=== PATIENT | male | born 1995 | race Caucasian/White ===

== ENCOUNTER 2018-04-04 09:32 | Inpatient (IN) ==
--- NOTE | 2018-04-04 10:00 | Emergency Department Note ---
General Adult HPI - General Chief complaint: Urogenital-Male Stated complaint: hematuria, weakness Time Seen by Provider: 04/04/18 09:46 Source: patient, family Mode of arrival: ambulatory Limitations: no limitations - History of Present Illness HPI Narrative: 22-year-old male in ED today with his grandmother present. Patient states 2 days ago he ate old taco time and felt as though he had food poisoning. 30 minutes after ingestion he began vomiting. Patient states since that time he's had nausea 2 episodes of vomiting yesterday, body aches, cramps, fatigue. Patient states he does have good intake with water. Patient states he has been able to keep his breakfast down this morning which was toast and eggs. Patient also states he is feeling better than he was 2 days ago and yesterday. Patient states he does not use alcohol. Patient smokes marijuana daily. Patient states he uses meth/heroin and shows the track andino. Patient states last use was 4-5 days ago. Patient does not believe he is in withdrawals because he "does not use it that often." patient states he does not have any sexual partners. He is working on getting his whoplusyou so he can go to college. Patient states he does not have any past medical history nor does he take any medications on a regular basis. Patient does request Benadryl for his nausea. Onset (ago): day(s) (2) Location: abdomen Radiation: non-radiation Severity: moderate Severity scale (1-10): 6 Quality: aching Consistency: intermittent Improves with: immobilization Worsens with: movement Associated symptoms: Reports: confusion, loss of appetite, malaise, nausea/ vomiting Treatments Prior to Arrival: none - Related Data Home Medications Medication Instructions Recorded Confirmed No Known Home Meds 04/04/18 04/04/18 Allergies Allergy/AdvReac Type Severity Reaction Status Date / Time No Known Drug Allergies Allergy Verified 04/04/18 09:33 Review of Systems Constitutional: Reports: weakness. Denies: fever, chills Eyes: Denies: eye pain ENT ED: Denies: ear pain, throat pain, congestion Cardiovascular: Denies: chest pain, palpitations Respiratory: Denies: shortness of breath, cough, wheezes Gastrointestinal: Reports: abdominal pain, nausea, vomiting. Denies: diarrhea, constipation Genitourinary: Denies: dysuria, frequency, urgency Musculoskeletal: Reports: joint pain. Denies: back pain Integumentary: Denies: rash Neurological: Reports: headache Endocrine: Reports: fatigue. Denies: heat or cold intolerance Hematological/Lymphatic: Denies: easy bleeding, easy bruising, lymphadenopathy Allergic/Immunologic: Denies: facial swelling, urticaria Past Medical History - Past Medical History Medical history: Reports: no medical history, other (Poor dental health) Surgical history ED: Reports: no surgical history - Social History smoking status: Current every day smoker Alcohol use: Reports: None Drug use: Reports: opiates, marijuana, methamphetamine Physical Exam Limitations: no limitations General appearance: alert, in no apparent distress, malaise Head: atraumatic, normocephalic, normal inspection Eye: Present: normal appearance, PERRL. Absent: conjunctival injection ENT: normal exam, normal oropharynx, mucous membranes moist, TM's normal bilaterally, normal external ear exam Neck: Present: normal inspection. Absent: tenderness, lymphadenopathy Chest: Present: normal inspection, symmetric chest wall rise. Absent: tenderness Respiratory: Present: normal lung sounds bilaterally, respiratory distress. Absent: wheezes Cardiovascular: Present: normal rhythm, tachycardia, systolic murmur, diastolic murmur Abdominal: Present: soft, tenderness, normal bowel sounds. Absent: distention, guarding, rebound, rigidity, organomegaly Abdominal tenderness: Present: diffuse, moderate Extremities: Present: normal inspection, other (patient does have track andino both right and left AC). Absent: tenderness, normal capillary refill Back: Present: normal inspection. Absent: CVA tenderness (R), CVA tenderness (L ) Neurological: Present: alert, oriented X3, normal gait Psychiatric: Present: normal affect, normal mood, depressed Skin: Present: warm, dry, intact, normal color. Absent: cyanosis, diaphoresis, erythema Course Vital Signs Temperature 97.5 F 04/04/18 09:33 Pulse Rate 111 H 04/04/18 09:33 Respiratory Rate 14 04/04/18 09:33 Blood Pressure 90/51 04/04/18 09:33 Pulse Oximetry (%) 100 04/04/18 09:33 Temperature 98.4 F 04/04/18 16:10 Pulse Rate 92 H 04/04/18 17:01 Respiratory Rate 29 H 04/04/18 19:01 Blood Pressure 95/39 04/04/18 19:01 Pulse Oximetry (%) 100 04/04/18 19:01 Medical Decision Making - MDM Narrative Medical decision making narrative: Consulted Dr. bland on patient diagnostics and history, agreed on sepsis and further treatment needed. Consulted with hospitalist Dr. Clark for admission and he accepted and added Zosyn, ProCal, and urine drug screen to the regimen. - Lab Data Lab results reviewed: Yes I reviewed the patient's lab results. Result diagrams: 04/04/18 10:17 04/04/18 10:17 Lab Results 04/04/18 04/04/18 04/04/18 Range/Units 09:40 09:40 10:11 WBC (4.5-11.0) K/mcL RBC (4.50-5.90) M/mcL Hgb (13.5-16.5) g/dL Hct (41.0-55.0) % MCV (80.0-100.0) fL MCH (26.0-34.0) pg MCHC (31.0-36.0) g/dL RDW (11.5-14.5) % Plt Count (140-440) K/mcL MPV (7.4-10.4) fL Gran % (38.0-78.0) % Lymph % (Auto) (15.5-49.0) % [place] % (Auto) (1.0-12.0) % Eos % (Auto) (0.0-7.0) % Baso % (Auto) (0.0-2.0) % Gran # (1.8-8.0) K/mcL Lymph # (Auto) (1.5-4.8) K/mcL [place] # (Auto) (0.1-0.9) K/mcL Eos # (Auto) (0.0-0.7) K/mcL Baso # (Auto) (0.0-0.3) K/mcL Differential Comment ESR (0-15) mm/hr VBG Lactic Acid (0.5-2.2) mmol/L Sodium (133-145) mmol/L Potassium (3.3-5.1) mmol/L Chloride (96-108) mmol/L Carbon Dioxide (22-30) mmol/L Anion Gap (8-16) BUN (6-20) mg/dl Creatinine (0.7-1.2) mg/dl GFR Calculation Glucose (70-105) mg/dL Calcium (8.6-10.4) mg/dl Total Bilirubin 2.4 H (0.0-1.0) mg/dL Direct Bilirubin 1.3 H (0.0-0.3) mg/dL AST 97 H (0-37) U/l ALT 148 H (0-40) U/l Alkaline Phosphatase 107 (39-117) U/L Ammonia (16-60) umol/L Total Creatine Kinase 251 H (24-195) IU/L C-Reactive Protein 20.3 H (0.0-0.8) mg/dl Total Protein 6.8 (5.9-8.4) gm/dL Albumin 4.0 (3.2-5.2) gm/dL Globulin 2.8 (2.2-3.7) gm/dL Albumin/Globulin Ratio (1.0-2.3) Amylase (28-100) U/L Lipase (7-60) U/L Procalcitonin (<0.10) ng/mL Urine Color [place] Urine Appearance Clear Urine pH 6.0 (5.0-9.0) Ur Specific [place] 1.019 (1.000-1.035) Urine Protein 30 A (NEG) mg/dL Urine Glucose (UA) Negative (NEG) mg/dL Urine Ketones Neg (NEG) mg/dL Urine Occult Blood 0.03 A (<0.03) mg/dL Urine Nitrate Neg (NEG) Urine Bilirubin Neg (NEG) mg/dL Urine Urobilinogen 4.0 A (NEG) mg/dL Ur Leukocyte Esterase Neg (NEG) /uL Urine RBC 2 H (0-1) /hpf Urine WBC 17 H (0-4) /hpf Ur Squamous Epith Cells 1 (0-4) /hpf Ur Transition Epith Cell < 1 (0-2) /hpf Amorphous Crystals Few A (0) /hpf Urine Bacteria 0 (0) /hpf Ur Culture Indicated? Yes Urine Opiates Screen None detected (NONDETECTED) Ur Oxycodone Screen None detected (NONDETECTED) Urine Methadone Screen None detected (NONDETECTED) Ur Barbiturates Screen None detected (NONDETECTED) Ur Phencyclidine Scrn None detected (NONDETECTED) Ur Amphetamines Screen Suspect positive A (NONDETECTED) U Benzodiazepines Scrn None detected (NONDETECTED) Urine Cocaine Screen None detected (NONDETECTED) U Marijuana (THC) Screen Suspect positive A (NONDETECTED) 04/04/18 04/04/18 04/04/18 Range/Units 10:17 10:17 10:17 WBC 21.2 H (4.5-11.0) K/mcL RBC 4.84 (4.50-5.90) M/mcL Hgb 15.1 (13.5-16.5) g/dL Hct 45.5 (41.0-55.0) % MCV 94.0 (80.0-100.0) fL MCH 31.1 (26.0-34.0) pg MCHC 33.1 (31.0-36.0) g/dL RDW 13.6 (11.5-14.5) % Plt Count 74 L (140-440) K/mcL MPV 10.1 (7.4-10.4) fL Gran % 91.3 H (38.0-78.0) % Lymph % (Auto) 4.8 L (15.5-49.0) % [place] % (Auto) 3.8 (1.0-12.0) % Eos % (Auto) 0 (0.0-7.0) % Baso % (Auto) 0.1 (0.0-2.0) % Gran # 19.4 H (1.8-8.0) K/mcL Lymph # (Auto) 1.0 L (1.5-4.8) K/mcL [place] # (Auto) 0.8 (0.1-0.9) K/mcL Eos # (Auto) 0 (0.0-0.7) K/mcL Baso # (Auto) 0 (0.0-0.3) K/mcL Differential Comment ESR 9 (0-15) mm/hr VBG Lactic Acid (0.5-2.2) mmol/L Sodium 131 L (133-145) mmol/L Potassium 3.5 (3.3-5.1) mmol/L Chloride 93 L (96-108) mmol/L Carbon Dioxide 27 (22-30) mmol/L Anion Gap 11.0 (8-16) BUN 31 H (6-20) mg/dl Creatinine 1.3 H (0.7-1.2) mg/dl GFR Calculation 78 Glucose 105 (70-105) mg/dL Calcium 8.8 (8.6-10.4) mg/dl Total Bilirubin 2.3 H (0.0-1.0) mg/dL Direct Bilirubin (0.0-0.3) mg/dL AST 101 H (0-37) U/l ALT 147 H (0-40) U/l Alkaline Phosphatase 110 (39-117) U/L Ammonia (16-60) umol/L Total Creatine Kinase (24-195) IU/L C-Reactive Protein (0.0-0.8) mg/dl Total Protein 6.6 (5.9-8.4) gm/dL Albumin 3.9 (3.2-5.2) gm/dL Globulin 2.7 (2.2-3.7) gm/dL Albumin/Globulin Ratio 1.4 (1.0-2.3) Amylase 26 L (28-100) U/L Lipase 15 (7-60) U/L Procalcitonin (<0.10) ng/mL Urine Color Urine Appearance Urine pH (5.0-9.0) Ur Specific [place] (1.000-1.035) Urine Protein (NEG) mg/dL Urine Glucose (UA) (NEG) mg/dL Urine Ketones (NEG) mg/dL Urine Occult Blood (<0.03) mg/dL Urine Nitrate (NEG) Urine Bilirubin (NEG) mg/dL Urine Urobilinogen (NEG) mg/dL Ur Leukocyte Esterase (NEG) /uL Urine RBC (0-1) /hpf Urine WBC (0-4) /hpf Ur Squamous Epith Cells (0-4) /hpf Ur Transition Epith Cell (0-2) /hpf Amorphous Crystals (0) /hpf Urine Bacteria (0) /hpf Ur Culture Indicated? Urine Opiates Screen (NONDETECTED) Ur Oxycodone Screen (NONDETECTED) Urine Methadone Screen (NONDETECTED) Ur Barbiturates Screen (NONDETECTED) Ur Phencyclidine Scrn (NONDETECTED) Ur Amphetamines Screen (NONDETECTED) U Benzodiazepines Scrn (NONDETECTED) Urine Cocaine Screen (NONDETECTED) U Marijuana (THC) Screen (NONDETECTED) 04/04/18 04/04/18 04/04/18 Range/Units 12:53 14:32 14:32 WBC (4.5-11.0) K/mcL RBC (4.50-5.90) M/mcL Hgb (13.5-16.5) g/dL Hct (41.0-55.0) % MCV (80.0-100.0) fL MCH (26.0-34.0) pg MCHC (31.0-36.0) g/dL RDW (11.5-14.5) % Plt Count (140-440) K/mcL MPV (7.4-10.4) fL Gran % (38.0-78.0) % Lymph % (Auto) (15.5-49.0) % [place] % (Auto) (1.0-12.0) % Eos % (Auto) (0.0-7.0) % Baso % (Auto) (0.0-2.0) % Gran # (1.8-8.0) K/mcL Lymph # (Auto) (1.5-4.8) K/mcL [place] # (Auto) (0.1-0.9) K/mcL Eos # (Auto) (0.0-0.7) K/mcL Baso # (Auto) (0.0-0.3) K/mcL Differential Comment ESR (0-15) mm/hr VBG Lactic Acid 2.3 H (0.5-2.2) mmol/L Sodium (133-145) mmol/L Potassium (3.3-5.1) mmol/L Chloride (96-108) mmol/L Carbon Dioxide (22-30) mmol/L Anion Gap (8-16) BUN (6-20) mg/dl Creatinine (0.7-1.2) mg/dl GFR Calculation Glucose (70-105) mg/dL Calcium (8.6-10.4) mg/dl Total Bilirubin (0.0-1.0) mg/dL Direct Bilirubin (0.0-0.3) mg/dL AST (0-37) U/l ALT (0-40) U/l Alkaline Phosphatase (39-117) U/L Ammonia 19 (16-60) umol/L Total Creatine Kinase (24-195) IU/L C-Reactive Protein (0.0-0.8) mg/dl Total Protein (5.9-8.4) gm/dL Albumin (3.2-5.2) gm/dL Globulin (2.2-3.7) gm/dL Albumin/Globulin Ratio (1.0-2.3) Amylase (28-100) U/L Lipase (7-60) U/L Procalcitonin 56.69 (<0.10) ng/mL Urine Color Urine Appearance Urine pH (5.0-9.0) Ur Specific [place] (1.000-1.035) Urine Protein (NEG) mg/dL Urine Glucose (UA) (NEG) mg/dL Urine Ketones (NEG) mg/dL Urine Occult Blood (<0.03) mg/dL Urine Nitrate (NEG) Urine Bilirubin (NEG) mg/dL Urine Urobilinogen (NEG) mg/dL Ur Leukocyte Esterase (NEG) /uL Urine RBC (0-1) /hpf Urine WBC (0-4) /hpf Ur Squamous Epith Cells (0-4) /hpf Ur Transition Epith Cell (0-2) /hpf Amorphous Crystals (0) /hpf Urine Bacteria (0) /hpf Ur Culture Indicated? Urine Opiates Screen (NONDETECTED) Ur Oxycodone Screen (NONDETECTED) Urine Methadone Screen (NONDETECTED) Ur Barbiturates Screen (NONDETECTED) Ur Phencyclidine Scrn (NONDETECTED) Ur Amphetamines Screen (NONDETECTED) U Benzodiazepines Scrn (NONDETECTED) Urine Cocaine Screen (NONDETECTED) U Marijuana (THC) Screen (NONDETECTED) - Radiology Data Radiology results reviewed: Yes I reviewed the patient's radiology results. Abd/Pelvic CT with splenomegaly. 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
[2018-04-04] MEDS ORDERED: diphenhydrAMINE 25 MG CAPSULE PO PRN (10:03)
[2018-04-04] MEDS ORDERED: diphenhydrAMINE 25 MG CAPSULE PO ONE (10:06)
[2018-04-04 11:02] LABS: Appearance,Urine CLEAR; Bacteria,Urine 0 /hpf (0); Bilirubin,Urine NEG (NEG); Color,Urine AMBER; Glucose,Urine (UA) NEGATIVE (NEG); Leukocyte Esterase,Urine NEG /uL (NEG); Protein,Urine 30 mg/dL (NEG); Specific Gravity,Urine 1.019 (1.000-1.035); Urine Amorphous Crystals FEW /hpf (0); Urine Blood 0.03 mg/dL (<0.03); Urine RBC 2 /hpf (0-1); Urine Squamous Epithelial Cell 1 /hpf (0-4); Urine Transitional Epi Cells < 1 /hpf (0-2); Urine WBC 17 /hpf (0-4)
[2018-04-04 11:05] LABS: ALT/SGPT 147 U/l (0-40); Albumin 3.9 gm/dL (3.2-5.2); Albumin/Globulin Ratio 1.4 (1.0-2.3); Alkaline Phosphatase 110 U/L (39-117); Amylase 26 U/L (28-100); Blood Urea Nitrogen 31 mg/dl (6-20); Lipase 15 U/L (7-60)
[2018-04-04 11:18] LABS: Basophils # (Auto) 0 K/mcL (0.0-0.3); Basophils % (Auto) 0.1 % (0.0-2.0); Eosinophils # (Auto) 0 K/mcL (0.0-0.7); Eosinophils % (Auto) 0 % (0.0-7.0); Granulocytes % (Auto) 91.3 % (38.0-78.0); Lymphocytes % (Auto) 4.8 % (15.5-49.0); Mean Corpuscular HGB Conc 33.1 g/dL (31.0-36.0); Mean Corpuscular Hemoglobin 31.1 pg (26.0-34.0); Monocytes # (Auto) 0.8 K/mcL (0.1-0.9); Monocytes % (Auto) 3.8 % (1.0-12.0); Platelet Count 74 K/mcL (140-440); RBC 4.84 M/mcL (4.50-5.90); Red Cell Distribution Width 13.6 % (11.5-14.5)
--- NOTE | 2018-04-04 12:45 | Ultrasound Report ---
CLINICAL INFORMATION: Vomiting. Abdominal pain. TECHNIQUE: Grayscale and color flow Doppler spectral imaging COMPARISON: None FINDINGS: Negative gallbladder. No cholelithiasis. No gallbladder wall thickening. No pericholecystic fluid. No dilated bile ducts. Common bile duct measures 4 mm. Liver measures 17 cm maximally. There is a "starry brandi" appearance consistent with echogenic biliary triads. This is described with hepatitis but is not a specific finding. No focal mass. Liver contour is smooth. No evidence for cirrhosis. No ascites. Visualized portions of the pancreas are negative. Right renal cortex is echogenic, consistent with medical renal disease. No significant hydronephrosis. No solid or cystic mass IMPRESSION: 1. Negative gallbladder 2. Echogenic renal cortex. Findings may be secondary to medical renal disease. 3. Echogenic biliary triads within the liver. Findings may be seen with hepatitis although they are nonspecific. No focal hepatic abnormality Interpreted and Authenticated by: Nilson Hernandez 04/04/18
--- NOTE | 2018-04-04 13:05 | Cat Scan Report ---
CLINICAL INFORMATION: Abdominal pain. Hematuria. COMPARISON: Right upper quadrant ultrasound dated 04/04/2018 TECHNIQUE: Axial images were obtained through the abdomen and pelvis. Sagittally and coronally reformatted images. FINDINGS: Lung bases are negative. No parenchymal infiltrate or mass. No pleural fluid. No pericardial fluid. Liver is negative to the limits of noncontrast enhanced examination. Liver contour is smooth. No evidence for cirrhosis. No detectable mass. Gallbladder is present. No calcified gallstones. No dilated bile ducts. There is mild splenic enlargement. Spleen measures 13.4 x 11.3 x 5.2 cm. Pancreas is not optimally visualized. There is very little intra-abdominal fat for contrast and contrast material was not given. No detectable pancreatic abnormality. Negative adrenal glands. No hydronephrosis. No renal calculi. No ureteral stone or bladder calculus. No diverticulitis. No detectable colonic mass. No appendicitis. Small bowel is negative without dilatation. No free intraperitoneal fluid. No intra-abdominal abscess. No pneumoperitoneum. No biliary or portal venous gas. No significant retroperitoneal or mesenteric adenopathy. Lumbar spine, sacrum, pelvis are negative. IMPRESSION: 1. Borderline splenomegaly 2. Otherwise negative noncontrast enhanced CT scan The exam was performed using radiation dose optimization techniques including, but not limited to, automated exposure control, adjustment of the mA and/or kV according to patient size and use of iterative reconstruction technique. Interpreted and Authenticated by: Nilson Hernandez 04/04/18
[2018-04-04 13:20] LABS: Bilirubin,Direct 1.3 mg/dL (0.0-0.3); C-Reactive Protein 20.3 mg/dl (0.0-0.8)
[2018-04-04] MEDS ORDERED: VANCOMYCIN 500 MG in 0.9 % SODIUM CHLORIDE 100 ML IV ONE (14:06)
[2018-04-04] MEDS ORDERED: PIPERACILLIN SODIUM/TAZOBACTAM 3.375 GM in DEXTROSE 5% IN WATER 50 ML IV ONE (14:10)
--- NOTE | 2018-04-04 14:35 | XRay Report ---
INDICATION: Sepsis TECHNIQUE: PA and lateral upright chest x-ray COMPARISON: 03/24/2015 FINDINGS: Lungs are negative. No parenchymal infiltrate or mass. Heart size and vascularity are normal. Izabel and mediastinum are negative. No pleural fluid. No acute abnormality or interval change IMPRESSION: 1. Negative PA and lateral chest x-ray 2. No significant interval change since 03/24/2015 Interpreted and Authenticated by: Nilson Hernandez 04/04/18
[2018-04-04] MEDS ORDERED: LACTATED RINGERS IV ONE (14:42)
--- NOTE | 2018-04-04 14:59 | Internal Med History&Physical ---
Medical - H&P: [facility] Patient information: Note initiated : 04/04/18 at 2:55 pm Service Date, if different from initiated Date: [] Patient: Anthony Hastings a 22 y/o M admitted on for hematuria, weakness. Chief Complaint: [] History of present illness: Mr. Hastings is a 22 year old M With a history of IV drug abuse who states uses a new needle each time. He did state about 4 days ago he used a cotton ball that he had previously. This was approximately on Monday. He felt fine Monday. On Monday he had taco time in the morning and shortly thereafter had nausea vomiting body aches no diarrhea became weak and fatigued. Ended up sleeping most of the day. We will get Monday he says he slept most of the Monday and today and at the urging of his grandmother came into the ER. He has never had an illness similar to this he has never been hospitalized for infection. Complains of weakness and malaise. He was able to keep breakfast down this morning but otherwise has not had much of an appetite. Last use IV drugs about 4 days ago heroin he also uses meth. Denies any fevers at this time, no chest pain, no tender spots on his palms or feet. He only uses antecubital areas for injection. Review of Systems: denies headache/fever/chills/nausea/vomiting/chest or abdominal pain/cough/ dyspnea/diarrhea/dysuria. Otherwise see above. Medical - H&P: PMH Medical history: Past medical history: This abuse IV drugs Tobacco abuse Surgical history: None Family history: States his mother and father both healthy Social history: Smokes 1 pack per day of cigarettes Drinks alcohol rarely Uses IV meth and heroin and smokes marijuana Lives with family member, grandmother Working on getting his [employer] Medical - H&P: Meds Home Medications Medication Instructions Recorded Confirmed Type No Known Home Meds 04/04/18 04/04/18 History Allergies Allergy/AdvReac Type Severity Reaction Status Date / Time No Known Drug Allergies Allergy Verified 04/04/18 09:33 Medical - H&P: Exam - Constitutional Vitals: Temp Pulse Resp BP Pulse Ox 97.5 F 111 H 14 109/51 100 04/04/18 09:33 04/04/18 09:33 04/04/18 09:33 04/04/18 13:04 04/04/18 13:04 Exam: General: Awake, No acute Distress, appears fatigued HEENT: EOMI, normocephalic atraumatic CV: RRR, No murmurs, normal s1/s2 Pulm: Clear b/l, no wheezing/rhonchi/rales Abd: soft, generalized tenderness throughout, +BS x4 Ext: no clubbing/cyanosis/edema, unable to appreciate any splinter hemorrhages or [place] nodes or [place] lesions, needle track andino antecubital space bilaterally, positive peripheral pulses 2+, cap refill less than 3 seconds Neuro: Alert, no focal deficits, moves all extremities Skin: warm/dry Medical - H&P: Reslt - Labs CBC & Chem 7: 04/04/18 10:17 04/04/18 10:17 Labs: Short CBC 04/04/18 Range/Units 10:17 WBC 21.2 H (4.5-11.0) K/mcL Hgb 15.1 (13.5-16.5) g/dL Hct 45.5 (41.0-55.0) % Plt Count 74 L (140-440) K/mcL BMP 04/04/18 10:17 Sodium 131 L Potassium 3.5 Chloride 93 L Carbon Dioxide 27 BUN 31 H Creatinine 1.3 H Glucose 105 Calcium 8.8 Cardiac Enzymes 04/04/18 Range/Units 10:11 Total Creatine Kinase 251 H (24-195) IU/L Liver Function 04/04/18 04/04/18 Range/Units 10:11 10:17 Total Bilirubin 2.4 H 2.3 H (0.0-1.0) mg/dL Direct Bilirubin 1.3 H (0.0-0.3) mg/dL AST 97 H 101 H (0-37) U/l ALT 148 H 147 H (0-40) U/l Alkaline Phosphatase 107 110 (39-117) U/L Albumin 4.0 3.9 (3.2-5.2) gm/dL Urine 04/04/18 Range/Units 09:40 Urine Color Ainsley Urine Appearance Clear Urine pH 6.0 (5.0-9.0) Ur Specific [place] 1.019 (1.000-1.035) Urine Protein 30 A (NEG) mg/dL Urine Glucose (UA) Negative (NEG) mg/dL Medical - H&P: A/P - Narrative A/P Narrative: A: *Severe sepsis: Likely secondary to bloodstream infection from IV drug use *possible Gastroenteritis with N/V: Secondary to food from restaurant *Hyponatremia: Secondary to above *Volume depletion: *Acute kidney injury: Secondary to above *Thrombocytopenia: Differential includes sepsis versus viral (HIV, hepatitis) *Transaminitis: Secondary to sepsis versus viral infection *Substance abuse with IV meth and heroin: *Tobacco abuse: P: -IV Vanco Zosyn pending blood cultures -IV fluid resuscitation -Pending hepatitis panel and HIV -Check ESR and trend CRP/pct -Repeat blood culture later today for endocarditis protocol and in a.m. - -ppx: lovenox
[2018-04-04] MEDS ORDERED: ACETAMINOPHEN 325 MG TABLET PO PRN (16:10)
[2018-04-04] MEDS ORDERED: ONDANSETRON 4 MG/2 ML VIAL IV PRN (16:10)
[2018-04-04] MEDS ORDERED: VANCOMYCIN PER PHARMACY IV SCH (16:10)
[2018-04-04 16:22] LABS: Amphetamine Screen,Urine SUSPECT POSITIVE (NONDETECTED); Benzodiazepines Screen,Urine NONE DETECTED (NONDETECTED); Cocaine Screen,Urine NONE DETECTED (NONDETECTED); Opiate Screen,Urine NONE DETECTED (NONDETECTED); Oxycodone, Urine Screen NONE DETECTED (NONDETECTED)
[2018-04-04] MEDS ORDERED: NICOTINE 21 MG PATCH TOPICAL ONE (16:26)
--- NOTE | 2018-04-04 16:31 | XRay Report ---
CLINICAL INFORMATION: Trauma TECHNIQUE: PA, oblique, lateral right hand COMPARISON: None. FINDINGS: No right hand fracture. No acute posttraumatic abnormality. There is a probable osteochondroma arising from the distal right second metacarpal. IMPRESSION: No acute abnormality. Interpreted and Authenticated by: Nilson Hernandez 04/04/18
[2018-04-04] MEDS: PIPERACILLIN SODIUM/TAZOBACTAM 3.375 GM in DEXTROSE 5% IN WATER 50 ML IV SCH ×2 (19:15→23:20)
[2018-04-04] MEDS: LORazepam 2 MG/ML VIAL IV PRN (20:27)
[2018-04-04] MEDS: FAMOTIDINE 20 MG TABLET PO SCH (20:32)
[2018-04-04] MEDS: 0.9 % SODIUM CHLORIDE 10 ML SYRINGE IV SCH (23:20)
[2018-04-04] MEDS: VANCOMYCIN 1,000 MG in 0.9 % SODIUM CHLORIDE 250 ML IV SCH (23:50)
[2018-04-05] MEDS: 0.9 % SODIUM CHLORIDE 10 ML SYRINGE IV SCH ×9 (05:51→21:00)
[2018-04-05] MEDS: PIPERACILLIN SODIUM/TAZOBACTAM 3.375 GM in DEXTROSE 5% IN WATER 50 ML IV SCH ×4 (05:51→23:03)
[2018-04-05 05:57] LABS: Mean Cell Volume 94.3 fL (80.0-100.0); Mean Corpuscular HGB Conc 33.6 g/dL (31.0-36.0); Mean Corpuscular Hemoglobin 31.7 pg (26.0-34.0); Platelet Count 76 K/mcL (140-440); RBC 4.24 M/mcL (4.50-5.90); Red Cell Distribution Width 13.1 % (11.5-14.5)
[2018-04-05 06:25] LABS: ALT/SGPT 91 U/l (0-40); Albumin 3.2 gm/dL (3.2-5.2); Albumin/Globulin Ratio 1.3 (1.0-2.3); Alkaline Phosphatase 109 U/L (39-117); Bilirubin,Direct 0.4 mg/dL (0.0-0.3); Blood Urea Nitrogen 18 mg/dl (6-20); Gamma Glutamyl Transpeptidase 104 U/L (8-61); Uric Acid 3.4 mg/dL (2.5-8.0)
--- NOTE | 2018-04-05 07:10 | Internal Med Progress Note ---
Medical - PN: Subj Patient information: Note initiated : 04/05/18 at 7:07 am Service Date, if different from initiated Date: [] Patient: Anthony Hastings a 22 y/o M admitted on 04/04/18 for hematuria, weakness. Chief Complaint: [] Interval history: Mr. Hastings is a 22 year old M With a history of IV drug abuse who states uses a new needle each time. He did state about 4 days ago he used a cotton ball that he had previously. This was approximately on Monday. He felt fine Monday. On Monday he had taco time in the morning and shortly thereafter had nausea vomiting body aches no diarrhea became weak and fatigued. Ended up sleeping most of the day. We will get Monday he says he slept most of the Monday and today and at the urging of his grandmother came into the ER. He has never had an illness similar to this he has never been hospitalized for infection. Complains of weakness and malaise. He was able to keep breakfast down this morning but otherwise has not had much of an appetite. Last use IV drugs about 4 days ago heroin he also uses meth. Denies any fevers at this time, no chest pain, no tender spots on his palms or feet. He only uses antecubital areas for injection. 04/05 Good appetite. Feels better from initial onset of symptoms couple days ago. Has still has some body ache. No nausea vomiting or diarrhea. Review of Systems: denies headache/fever/chills/nausea/vomiting/chest or abdominal pain/cough/ dyspnea/diarrhea. Otherwise see above. - Constitutional Vitals: Vital Signs Temp Pulse Resp BP Pulse Ox 98.8 F 96 H 22 109/62 99 04/04/18 20:00 04/05/18 06:01 04/05/18 05:00 04/05/18 06:01 04/05/18 06:01 Period Temp Pulse Resp BP Sys/Galvan Pulse Ox Last 24 Hr 97.5 F-98.8 F 92-111 14-31 90-120/39-73 99-100 Intake and Output 04/04/18 04/05/18 04/05/18 21:59 05:59 13:59 Intake Total 3090 / 3090 300 / 300 50 / 50 Output Total 950 / 950 650 / 650 Balance 2140 / 2140 -350 / -350 50 / 50 Weight 74.389 kg Intake & Output: Intake & Output 04/04/18 04/05/18 04/05/18 21:59 05:59 13:59 Intake Total 3090 / 3090 300 / 300 50 / 50 Output Total 950 / 950 650 / 650 Balance 2140 / 2140 -350 / -350 50 / 50 Weight 74.389 kg Intake: IV 2450 / 2450 300 / 300 50 / 50 Zosyn 3.375 gm In Dextrose 5% 100 / 100 50 / 50 50 / 50 in Water 50 ml @ 100 mls/hr IV Q6H [facility] Rx#:[id number] Vancomycin 1,000 mg In Sodium 250 / 250 Chloride 0.9% 250 ml @ 250 mls/ hr IV Q12H [facility] Rx#:[id number] Oral 640 / 640 Output: Void Amount 950 / 950 650 / 650 Other: Meal Tuna sandwich Percent of Meal Consumed 100% Feeding Ability Independent Urine Appearance Clear Clear Urine Color Straw Straw Urine Odor Normal Exam: General: Awake, No acute Distress, HEENT: EOMI CV: RRR, No murmurs, normal s1/s2 Pulm: Clear b/l, no wheezing/rhonchi/rales Abd: soft, +BS x4 Ext: no clubbing/cyanosis/edema, unable to appreciate any splinter hemorrhages or Osler nodes or Janeway lesions, needle track andino antecubital space bilaterally, Neuro: Alert, no focal deficits, moves all extremities Skin: warm/dry Medical - PN: Obj Da - Labs CBC & Chem 7: 04/05/18 03:44 04/05/18 03:44 Labs: Abnormal Lab Results 04/05/18 04/05/18 04/04/18 03:44 03:44 12:53 WBC 15.0 H RBC 4.24 L Hgb 13.4 L Hct 39.9 L Plt Count 76 L MPV 10.9 H Gran % Lymph % (Auto) Gran # Lymph # (Auto) VBG Lactic Acid 2.3 H Sodium Chloride Carbon Dioxide 21 L BUN Creatinine Total Bilirubin Direct Bilirubin 0.4 H GGT 104 H AST 55 H ALT 91 H Total Creatine Kinase C-Reactive Protein Total Protein 5.6 L Amylase Urine Protein Urine Occult Blood Urine Urobilinogen Urine RBC Urine WBC Amorphous Crystals Ur Amphetamines Screen U Marijuana (THC) Screen 04/04/18 04/04/18 04/04/18 10:17 10:17 10:11 WBC 21.2 H RBC Hgb Hct Plt Count 74 L MPV Gran % 91.3 H Lymph % (Auto) 4.8 L Gran # 19.4 H Lymph # (Auto) 1.0 L VBG Lactic Acid Sodium 131 L Chloride 93 L Carbon Dioxide BUN 31 H Creatinine 1.3 H Total Bilirubin 2.3 H 2.4 H Direct Bilirubin 1.3 H GGT AST 101 H 97 H ALT 147 H 148 H Total Creatine Kinase 251 H C-Reactive Protein 20.3 H Total Protein Amylase 26 L Urine Protein Urine Occult Blood Urine Urobilinogen Urine RBC Urine WBC Amorphous Crystals Ur Amphetamines Screen U Marijuana (THC) Screen 04/04/18 04/04/18 09:40 09:40 WBC RBC Hgb Hct Plt Count MPV Gran % Lymph % (Auto) Gran # Lymph # (Auto) VBG Lactic Acid Sodium Chloride Carbon Dioxide BUN Creatinine Total Bilirubin Direct Bilirubin GGT AST ALT Total Creatine Kinase C-Reactive Protein Total Protein Amylase Urine Protein 30 A Urine Occult Blood 0.03 A Urine Urobilinogen 4.0 A Urine RBC 2 H Urine WBC 17 H Amorphous Crystals Few A Ur Amphetamines Screen Suspect positive A U Marijuana (THC) Screen Suspect positive A Meds: Medications Acetaminophen (Tylenol) 650 mg PO Q6HP PRN PRN Reason: PAIN/FEVER > 101 Last Admin: 04/05/18 06:45 Dose: 650 mg Enoxaparin Sodium (Lovenox) 40 mg SQ DAILY [facility] Famotidine (Pepcid) 20 mg PO BID [facility] Last Admin: 04/04/18 20:32 Dose: 20 mg Piperacillin Sod/Tazobactam (Sod 3.375 gm/ Dextrose) 50 mls @ 100 mls/hr IV Q6H [facility] Last Infusion: 04/05/18 06:42 Dose: Infused Vancomycin HCl 1,000 mg/ (Sodium Chloride) 250 mls @ 250 mls/hr IV Q12H [facility] Last Infusion: 04/05/18 00:50 Dose: Infused Lorazepam (Ativan) 0.5 mg IV Q6HP PRN PRN Reason: ANXIETY/SEDATION Last Admin: 04/04/18 20:27 Dose: 0.5 mg Nicotine (Nicoderm) 21 mg TOPICAL DAILY@1000 [facility] Ondansetron HCl (Zofran) 4 mg IV Q4HP PRN PRN Reason: Nausea And Vomiting Sodium Chloride (Saline Flush) 10 ml IV Q8 [facility] Last Admin: 04/05/18 06:42 Dose: 10 ml Vancomycin HCl (Vancomycin Per Pharmacy) 1 order IV UD [facility] Medical - PN: A/P - Time Spent With Patient Total time spent is greater than 50% in coordination of care (as documented) at patient's floor/unit and/or counseling patient: - Narrative A/P Narrative: A: *Severe sepsis: Likely secondary to bloodstream infection from IV drug use -leukocytosis/PCT improving *possible Gastroenteritis with N/V: Secondary to food poisoning *Hyponatremia: Secondary to above, resolved *Volume depletion: resolved *Acute kidney injury: Secondary to above, resolved *Thrombocytopenia: Differential includes sepsis versus viral (HIV, hepatitis), stable *Transaminitis: Secondary to sepsis versus viral infection, improving *Substance abuse with IV meth and heroin: *Tobacco abuse: *Anxiety/?opioid withdrawal P: -IV Vanco/Zosyn, pending blood cultures - -Pending hepatitis panel and HIV -trend pct -f/u BC -prn benzo -ppx: lovenox Medical - PN: Qual - VTE Deep Vein Thrombosis/Pulmonary Embolism Present on Admission: No
[2018-04-05 07:18] LABS: Hepatitis A Antibody IgM NON REACTIVE (NEGATIVE); Hepatitis B Core IgM NON REACTIVE (NEGATIVE); Hepatitis B Surface Antigen NEGATIVE (NEGATIVE); Hepatitis C Virus Antibody NON REACTIVE (NEGATIVE)
[2018-04-05 08:04] LABS: Band Neutrophils % 46 % (0-10); Dohle Bodies RARE (NONE SEEN); Lymphocytes % 10 % (15-49); Metamyelocytes % 1 % (0-0); Monocytes % (Manual) 5 % (1-12); Platelet Estimate DECREASED (NORMAL); RBC Morphology ABNORM (NORMAL); Segmented Neutrophils % 38 % (38-78); Toxic Granulation RARE (NONE SEEN)
--- NOTE | 2018-04-05 08:07 | Emergency Department Note ---
ED Note Addendum Note Addendum: I reviewed this case with the mid-level provider and agree with her assessment and plan.
[2018-04-05] MEDS: FAMOTIDINE 20 MG TABLET PO SCH ×2 (08:26→21:00)
[2018-04-05 08:47] LABS: HIV1/2 AG/AB 4TH Generation NON-REACTIVE
[2018-04-05] MEDS: VANCOMYCIN 1,000 MG in 0.9 % SODIUM CHLORIDE 250 ML IV SCH ×3 (08:53→20:59)
[2018-04-05] MEDS ORDERED: ENOXAPARIN 40 MG/0.4 ML SYRINGE SQ SCH (09:00)
[2018-04-05] MEDS: LORazepam 2 MG/ML VIAL IV PRN (09:07)
[2018-04-05] MEDS ORDERED: NICOTINE 21 MG PATCH TOPICAL SCH (10:00)
[2018-04-05] MEDS ORDERED: diphenhydrAMINE 25 MG CAPSULE PO PRN ×2 (13:16→18:21)
[2018-04-05] MEDS ORDERED: VANCOMYCIN PER PHARMACY IV SCH (18:21)
[2018-04-05] MEDS ORDERED: ONDANSETRON 4 MG/2 ML VIAL IV PRN (18:21)
[2018-04-05] MEDS ORDERED: ACETAMINOPHEN 325 MG TABLET PO PRN (18:21)
[2018-04-05] MEDS ORDERED: LORazepam 2 MG/ML VIAL IV PRN (18:21)
[2018-04-05] MEDS ORDERED: PIPERACILLIN SODIUM/TAZOBACTAM 3.375 GM in DEXTROSE 5% IN WATER 50 ML IV SCH (19:00)
[2018-04-06 05:43] LABS: ALT/SGPT 72 U/l (0-40); Albumin 3.4 gm/dL (3.2-5.2); Albumin/Globulin Ratio 1.4 (1.0-2.3); Alkaline Phosphatase 100 U/L (39-117); Blood Urea Nitrogen 13 mg/dl (6-20)
[2018-04-06] MEDS: PIPERACILLIN SODIUM/TAZOBACTAM 3.375 GM in DEXTROSE 5% IN WATER 50 ML IV SCH ×2 (05:58→12:05)
[2018-04-06] MEDS: 0.9 % SODIUM CHLORIDE 10 ML SYRINGE IV SCH ×2 (05:59→12:05)
--- NOTE | 2018-04-06 07:14 | Internal Med Progress Note ---
Medical - PN: Subj Patient information: Note initiated : 04/06/18 at 7:08 am Service Date, if different from initiated Date: [] Patient: Anthony Hastings a 22 y/o M admitted on 04/04/18 for Hematuria, Weakness/ Severe Sepsis. Chief Complaint: [] Interval history: Mr. Hastings is a 22 year old M With a history of IV drug abuse who states uses a new needle each time. He did state about 4 days ago he used a cotton ball that he had previously. This was approximately on Monday. He felt fine Monday. On Monday he had taco time in the morning and shortly thereafter had nausea vomiting body aches no diarrhea became weak and fatigued. Ended up sleeping most of the day. We will get Monday he says he slept most of the Monday and today and at the urging of his grandmother came into the ER. He has never had an illness similar to this he has never been hospitalized for infection. Complains of weakness and malaise. He was able to keep breakfast down this morning but otherwise has not had much of an appetite. Last use IV drugs about 4 days ago heroin he also uses meth. Denies any fevers at this time, no chest pain, no tender spots on his palms or feet. He only uses antecubital areas for injection. 04/05 Good appetite. Feels better from initial onset of symptoms couple days ago. Has still has some body ache. No nausea vomiting or diarrhea. 04/06 slept well, no nausea/ vomiting. Review of Systems: denies headache/fever/chills/nausea/vomiting/chest or abdominal pain/cough/ dyspnea/diarrhea. Otherwise see above. - Constitutional Vitals: Vital Signs Temp Pulse Resp BP Pulse Ox 99.2 F H 93 H 22 130/70 97 04/06/18 00:00 04/05/18 18:01 04/06/18 00:00 04/06/18 04:00 04/06/18 00:00 Period Temp Pulse Resp BP Sys/Galvan Pulse Ox Last 24 Hr 99.2 F-99.7 F 93-103 18-32 90-136/51-81 97-100 Intake and Output 04/05/18 04/06/18 04/06/18 21:59 05:59 13:59 Intake Total 1740 / 1740 50 / 50 50 / 50 Output Total 850 / 850 1000 / 1000 Balance 890 / 890 -950 / -950 50 / 50 Weight 76.022 kg Intake & Output: Intake & Output 04/05/18 04/06/18 04/06/18 21:59 05:59 13:59 Intake Total 1740 / 1740 50 / 50 50 / 50 Output Total 850 / 850 1000 / 1000 Balance 890 / 890 -950 / -950 50 / 50 Weight 76.022 kg Intake: IV 300 / 300 50 / 50 50 / 50 Zosyn 3.375 gm In Dextrose 5% 50 / 50 50 / 50 50 / 50 in Water 50 ml @ 100 mls/hr IV Q6H [facility] Rx#:[id number] Oral 1440 / 1440 Output: Void Amount 850 / 850 1000 / 1000 Other: Meal 0range juice Percent of Meal Consumed 100% Feeding Ability Independent Exam: General: Awake, No acute Distress, HEENT: EOMI CV: RRR, No murmurs, normal s1/s2 Pulm: Clear b/l, no wheezing/rhonchi/rales Abd: soft, +BS x4 Ext: no clubbing/cyanosis/edema, unable to appreciate any splinter hemorrhages or Osler nodes or Janeway lesions, needle track andino antecubital space bilaterally, Neuro: Alert, no focal deficits, moves all extremities Skin: warm/dry Medical - PN: Obj Da - Labs CBC & Chem 7: 04/05/18 03:44 04/06/18 03:48 Labs: Abnormal Lab Results 04/06/18 04/05/18 04/05/18 03:48 03:44 03:44 WBC 15.0 H RBC 4.24 L Hgb 13.4 L Hct 39.9 L Plt Count 76 L MPV 10.9 H Gran % Lymph % (Auto) Gran # Lymph # (Auto) Band Neutrophils % 46 H Lymphocytes % 10 L Metamyelocytes % 1 H WBC Morphology Abnorm A Vacuolated Neuts Few A Toxic Granulation Rare A Dohle Bodies Rare A Platelet Estimate Decreased A RBC Morphology Abnorm A Poikilocytosis Occ A RBC Fragments Rare A VBG Lactic Acid Sodium Chloride Carbon Dioxide 21 L BUN Creatinine Total Bilirubin Direct Bilirubin 0.4 H GGT 104 H AST 55 H ALT 72 H 91 H Total Creatine Kinase C-Reactive Protein Total Protein 5.6 L Amylase Urine Protein Urine Occult Blood Urine Urobilinogen Urine RBC Urine WBC Amorphous Crystals Ur Amphetamines Screen U Marijuana (THC) Screen 04/04/18 04/04/18 04/04/18 12:53 10:17 10:17 WBC 21.2 H RBC Hgb Hct Plt Count 74 L MPV Gran % 91.3 H Lymph % (Auto) 4.8 L Gran # 19.4 H Lymph # (Auto) 1.0 L Band Neutrophils % Lymphocytes % Metamyelocytes % WBC Morphology Vacuolated Neuts Toxic Granulation Dohle Bodies Platelet Estimate RBC Morphology Poikilocytosis RBC Fragments VBG Lactic Acid 2.3 H Sodium 131 L Chloride 93 L Carbon Dioxide BUN 31 H Creatinine 1.3 H Total Bilirubin 2.3 H Direct Bilirubin GGT AST 101 H ALT 147 H Total Creatine Kinase C-Reactive Protein Total Protein Amylase 26 L Urine Protein Urine Occult Blood Urine Urobilinogen Urine RBC Urine WBC Amorphous Crystals Ur Amphetamines Screen U Marijuana (THC) Screen 04/04/18 04/04/18 04/04/18 10:11 09:40 09:40 WBC RBC Hgb Hct Plt Count MPV Gran % Lymph % (Auto) Gran # Lymph # (Auto) Band Neutrophils % Lymphocytes % Metamyelocytes % WBC Morphology Vacuolated Neuts Toxic Granulation Dohle Bodies Platelet Estimate RBC Morphology Poikilocytosis RBC Fragments VBG Lactic Acid Sodium Chloride Carbon Dioxide BUN Creatinine Total Bilirubin 2.4 H Direct Bilirubin 1.3 H GGT AST 97 H ALT 148 H Total Creatine Kinase 251 H C-Reactive Protein 20.3 H Total Protein Amylase Urine Protein 30 A Urine Occult Blood 0.03 A Urine Urobilinogen 4.0 A Urine RBC 2 H Urine WBC 17 H Amorphous Crystals Few A Ur Amphetamines Screen Suspect positive A U Marijuana (THC) Screen Suspect positive A Meds: Medications Acetaminophen (Tylenol) 650 mg PO Q6HP PRN PRN Reason: PAIN/FEVER > 101 Diphenhydramine HCl (Benadryl) 25 mg PO Q8HP PRN PRN Reason: Sleep Enoxaparin Sodium (Lovenox) 40 mg SQ DAILY [facility] Famotidine (Pepcid) 20 mg PO BID [facility] Last Admin: 04/05/18 21:00 Dose: 20 mg Vancomycin HCl 1,000 mg/ (Sodium Chloride) 250 mls @ 250 mls/hr IV Q12H [facility] Last Admin: 04/05/18 20:59 Dose: Not Given Piperacillin Sod/Tazobactam (Sod 3.375 gm/ Dextrose) 50 mls @ 100 mls/hr IV Q6H [facility] Last Infusion: 04/06/18 06:43 Dose: Infused Lorazepam (Ativan) 0.5 mg IV Q6HP PRN PRN Reason: ANXIETY/SEDATION Nicotine (Nicoderm) 21 mg TOPICAL DAILY@1000 [facility] Ondansetron HCl (Zofran) 4 mg IV Q4HP PRN PRN Reason: Nausea And Vomiting Sodium Chloride (Saline Flush) 10 ml IV Q8 [facility] Last Admin: 04/06/18 05:59 Dose: 10 ml Vancomycin HCl (Vancomycin Per Pharmacy) 1 order IV UD [facility] Medical - PN: A/P - Time Spent With Patient Total time spent is greater than 50% in coordination of care (as documented) at patient's floor/unit and/or counseling patient: - Narrative A/P Narrative: A: *Severe sepsis: Likely secondary to bloodstream infection from IV drug use -leukocytosis/PCT improving *Gastroenteritis with N/V: Secondary to food poisoning *Hyponatremia: Secondary to above, resolved *Volume depletion: resolved *Acute kidney injury: Secondary to above, resolved *Thrombocytopenia: Differential includes sepsis versus viral (HIV, hepatitis), stable -Hep panel and HIV negative *Transaminitis: Secondary to sepsis versus viral infection, improving *Substance abuse with IV meth and heroin: -with mild opioid withdrawal *Tobacco abuse: *Anxiety/opioid withdrawal initially: improved P: -IV Vanco/Zosyn, pending blood cultures --f/u BC -prn benzo -ppx: lovenox Medical - PN: Qual - VTE Deep Vein Thrombosis/Pulmonary Embolism Present on Admission: No
[2018-04-06 08:45] LABS: Mean Cell Volume 95.2 fL (80.0-100.0); Mean Corpuscular Hemoglobin 31.4 pg (26.0-34.0); Platelet Count 119 K/mcL (140-440); RBC 4.92 M/mcL (4.50-5.90); Red Cell Distribution Width 13.1 % (11.5-14.5)
[2018-04-06] MEDS ORDERED: ENOXAPARIN 40 MG/0.4 ML SYRINGE SQ SCH (09:00)
[2018-04-06] MEDS: FAMOTIDINE 20 MG TABLET PO SCH (09:28)
[2018-04-06 09:35] LABS: Band Neutrophils % 14 % (0-10); Basophils % (Manual) 1 % (0-2); Lymphocytes % 16 % (15-49); Platelet Estimate DECREASED (NORMAL); RBC Morphology NORMAL (NORMAL); Segmented Neutrophils % 69 % (38-78)
[2018-04-06] MEDS ORDERED: NICOTINE 21 MG PATCH TOPICAL SCH (10:00)
[2018-04-06] MEDS ORDERED: VANCOMYCIN 1,500 MG in 0.9 % SODIUM CHLORIDE 500 ML IV SCH (12:00)
[2018-04-06] MEDS: VANCOMYCIN 1,000 MG in 0.9 % SODIUM CHLORIDE 250 ML IV SCH (12:51)
--- NOTE | 2018-04-06 15:37 | Discharge Summary ---
Medical - DS: Prov Patient information: Note initiated : 04/06/18 at 3:35 pm Service Date, if different from initiated Date: [] Patient: Anthony Hastings a 22 y/o M admitted on 04/04/18 for Hematuria, Weakness/ Severe Sepsis. Chief Complaint: [] Date of admission: 04/04/18 16:03 Discharge date: 04/06/18 Primary care physician: PCP No Consults: 04/04/18 Consult to Physician [CONS] Stat Comment: Consulting Provider: Tristan Clark Reason For Exam: Physician to Consult Medical - DS: Meds - Discharge Medications Prescriptions: Sulfamethoxazole/Trimethoprim [Bactrim Ds] 1 tab PO BID #10 tab Active and Home Medications: Home Medications No Known Home Meds 04/04/18 [History Confirmed 04/04/18 Last Taken Unknown] Medical - DS: Hosp Hospital course: Mr. Hastings is a 22 year old M With a history of IV drug abuse who states uses a new needle each time. He did state about 4 days ago he used a cotton ball that he had previously. This was approximately on Monday. He felt fine Monday. On Monday he had taco time in the morning and shortly thereafter had nausea vomiting body aches no diarrhea became weak and fatigued. Ended up sleeping most of the day. We will get Monday he says he slept most of the Monday and today and at the urging of his grandmother came into the ER. He has never had an illness similar to this he has never been hospitalized for infection. Complains of weakness and malaise. He was able to keep breakfast down this morning but otherwise has not had much of an appetite. Last use IV drugs about 4 days ago heroin he also uses meth. Denies any fevers at this time, no chest pain, no tender spots on his palms or feet. He only uses antecubital areas for injection. 04/05 Good appetite. Feels better from initial onset of symptoms couple days ago. Has still has some body ache. No nausea vomiting or diarrhea. 04/06 slept well, no nausea/ vomiting. Feeling much better. Leukocytosis resolved. Bandemia much improved. Pro calcitonin significantly improved. Blood cultures did not grow anything. Sepsis syndrome suspected to be GI but still concern for IV drug use cutaneous portal of entry. She did screen positive for MRSA. He is otherwise doing well stable for discharge did financial aid counselor him on substance abuse and the importance of stopping now. Did seem to have little bit of withdrawal while he was first here which called down with Brenna. Patient now stable for discharge Discharge diagnosis: Sepsis substance abuse gastroenteritis acute kidney injury - Time Spent with Patient Total time spent providing and/or coordinating discharge services: Greater than 30 minutes Medical - DS: Exam - Constitutional Vitals: Vital Signs Temp Pulse Resp BP Pulse Ox 04/06/18 12:15 97.9 F 24 H 131/76 99 04/06/18 08:15 99 04/06/18 08:07 98.2 F 24 H 136/87 99 04/06/18 04:00 130/70 04/06/18 03:00 130/67 04/06/18 02:01 90/65 04/06/18 01:00 125/65 04/06/18 00:00 99.2 F H 22 117/61 97 04/05/18 20:01 22 130/55 97 04/05/18 20:00 99.7 F H 04/05/18 19:05 24 H 128/65 100 04/05/18 18:01 93 H 32 H 125/65 99 04/05/18 17:01 96 H 24 H 122/61 100 04/05/18 16:01 99.2 F H 93 H 20 136/73 99 Intake and Output 04/06/18 04/06/18 04/06/18 05:59 13:59 21:59 Intake Total 50 / 50 820 / 820 780 / 780 Output Total 1000 / 1000 1325 / 1325 Balance -950 / -950 -505 / -505 780 / 780 Intake: IV 50 / 50 100 / 100 Zosyn 3.375 gm In Dextrose 5% 50 / 50 100 / 100 in Water 50 ml @ 100 mls/hr IV Q6H [facility] Rx#:[id number] Oral 720 / 720 780 / 780 Output: Urine Catheter Amount 275 / 275 Void Amount 1000 / 1000 1050 / 1050 Other: Meal Lunch Lunch Percent of Meal Consumed 100% 100% Feeding Ability Independent Independent Urine Appearance Clear Urine Color Bright Yellow Urine Odor Normal # Voids 1 Medical - DS: Data Labs on day of discharge: Labs from last 24 hours 04/06/18 04/06/18 04/06/18 08:15 08:15 03:48 WBC 11.0 RBC 4.92 Hgb 15.5 Hct 46.8 MCV 95.2 MCH 31.4 MCHC 33.0 RDW 13.1 Plt Count 119 L MPV 9.9 Total Counted 100 Seg Neutrophils % 69 Band Neutrophils % 14 H Lymphocytes % 16 Basophils % (Manual) 1 Platelet Estimate Decreased A RBC Morphology Normal Sodium 138 Potassium 4.3 Chloride 103 Carbon Dioxide 24 Anion Gap 11.0 BUN 13 Creatinine 0.8 GFR Calculation 128 Glucose 87 Calcium 8.6 Total Bilirubin 0.5 AST 37 ALT 72 H Alkaline Phosphatase 100 Total Protein 5.9 Albumin 3.4 Globulin 2.5 Albumin/Globulin Ratio 1.4 Procalcitonin Vancomycin Trough 6.0 04/06/18 03:48 WBC RBC Hgb Hct MCV MCH MCHC RDW Plt Count MPV Total Counted Seg Neutrophils % Band Neutrophils % Lymphocytes % Basophils % (Manual) Platelet Estimate RBC Morphology Sodium Potassium Chloride Carbon Dioxide Anion Gap BUN Creatinine GFR Calculation Glucose Calcium Total Bilirubin AST ALT Alkaline Phosphatase Total Protein Albumin Globulin Albumin/Globulin Ratio Procalcitonin 12.92 Vancomycin Trough Preliminary micro results at discharge 04/05/18 09:00 Blood Culture - Preliminary Blood 04/04/18 14:45 Blood Culture - Preliminary Blood 04/04/18 14:32 Blood Culture - Preliminary Blood Medical - DS: A/P - Patient/Caregiver Discharge Instructions Activity: increase activity as tolerated Diet: Regular Diet - Follow up Plan Follow up with: Adrienne Lisa, JOSE, INDUSTRIAL ENGINEERING TECH[employer]OLOGIST [Nurse Practitioner] - 04/12/18 11:30 am (Please check in at 11:15 am.) No,PCP [Primary Care Provider] - Disposition: Home, Self-Care Prognosis: Fair Rehab Potential: Fair Medical - DS: Qual - VTE Deep Vein Thrombosis/Pulmonary Embolism Present on Admission: No
== END 2018-04-06 16:05 | disposition home or self-care (01) | DRG 872 ==
LOC: ED 09:32 → ICU 16:03
PROVIDERS: ADMIT Internal Medicine; ATTEND Internal Medicine